=== PATIENT | female | born 1935 | race Caucasian/White ===

== ENCOUNTER 2016-09-19 13:28 | Emergency (ER) | payer OTHER ==
[~2016-09-19 13:28] MED LIST: ARICEPT 5MG TABL5 MG PO; AZOPT OU; CELEXA10 MG PO; K-TAB ER10 MEQ PO; LASIX40 MG PO; LIPITOR20 MG PO; NAMENDA XR PO; NORVASC5 MG PO; SODIUM BICARBO650 M1 PO; XALATAN2.5 ML OU
== END 2016-09-19 17:54 | disposition home or self-care (01) ==
LOC: FER 13:28
DX: G44.40 Drug-induced headache, not elsewhere classified, not intractable (principal); T46.5X5A Adverse effect of other antihypertensive drugs, initial encounter; I12.9 Hypertensive chronic kidney disease with stage 1 through stage 4 chronic kidney disease, or unspecified chronic kidney disease; N18.9 Chronic kidney disease, unspecified; F03.90 Unspecified dementia, unspecified severity, without behavioral disturbance, psychotic disturbance, mood disturbance, and anxiety; E78.5 Hyperlipidemia, unspecified; Z79.899 Other long term (current) drug therapy
CPT/HCPCS: 93005